=== PATIENT | female | born 1980 | race Caucasian/White ===

== ENCOUNTER 2017-08-31 19:09 | Emergency (ER) | payer OTHER ==
[2017-08-31 21:31] VITALS: BP 112/65
[2017-08-31] MEDS ORDERED: Nitrofurantoin Macrocrystals* 50 MG CAP PO ONE (21:45)
[2017-08-31] MEDS ORDERED: Phenazopyridine TAB* 100 MG PO ONE ×2 (21:46→21:47)
--- NOTE | 2017-08-31 21:51 | UC ---
Complaint Female HPI - HPI Summary HPI Summary: 37 female presents to with complaints of urinary burning, frequency, urgency , and feeling as though she has to urinate even after just doing so. Symptoms just began this morning. Denies incontinence, vaginal discharge, itching or bleeding. NO abdominal pain, mild lower suprapubic discomfort. No back pain. No nausea, vomiting or fever. No noticeable blood in urine. No other complaints. No PMHx. Has not taken any medication. - History Of Current Complaint Chief Complaint: UCGU Stated Complaint: URINARY Time Seen by Provider: 08/31/17 21:40 Hx Obtained From: Patient Hx Last Menstrual Period: 08/12/17 ?: No Onset/Duration: Sudden Onset, Lasting Hours, Still Present, Worse Since Timing: Constant Severity Initially: Mild Severity Currently: Moderate Pain Intensity: 4 Pain Scale Used: 0-10 Numeric Character: Burning Aggravating Factor(s): Urination Alleviating Factor(s): Nothing Associated Signs And Symptoms: Positive: Negative - Allergies/Home Medications Allergies/Adverse Reactions: Allergies Allergy/AdvReac Type Severity Reaction Status Date / Time Penicillins Allergy Intermediate HIVES,SWELL Verified 08/31/17 21:31 ING Sulfa Drugs Allergy Intermediate Hives Verified 08/31/17 21:31 viruses Allergy Severe Hives Uncoded 08/31/17 21:31 Home Medications: Home Medications Albuterol HFA INHALER* [Ventolin HFA Inhaler*] 2 puff INH Q4H PRN 08/31/17 [ History Confirmed 08/31/17] PMH/Surg Hx/FS Hx/Imm Hx - Additional Past Medical History Additional PMH: Denied PMHx no DM HTN or asthma - Surgical History Surgical History: Yes Surgery Procedure, Year, and Place: - Family History Known Family History: Positive: Other - Postive [facility] for URI - Social History Alcohol Use: None Substance Use Type: None Smoking Status (MU): Never Smoked Tobacco Review of Systems Constitutional: Negative Respiratory: Negative Cardiovascular: Negative Gastrointestinal: Negative Genitourinary: Dysuria, Hematuria, Frequency, Urgency All Other Systems Reviewed And Are Negative: Yes Physical Exam Triage Information Reviewed: Yes Appearance: Well-Appearing, No Pain Distress, Well-Nourished Vital Signs: Initial Vital Signs Temp 97.8 F 08/31/17 21:26 Pulse 67 08/31/17 21:26 Resp 15 08/31/17 21:26 BP 112/65 08/31/17 21:26 Pulse Ox 100 08/31/17 21:26 Eyes: Positive: Conjunctiva Clear Respiratory: Positive: Chest non-tender, Lungs clear, Normal breath sounds, No respiratory distress, No accessory muscle use Cardiovascular: Positive: RRR, No Murmur, Pulses Normal, Brisk Capillary Refill Abdomen Description: Positive: Nontender, No Organomegaly, Soft, Other: - mild discomfort on palpation of suprapubic /bladder area. Negative: CVA Tenderness ( R), CVA Tenderness (L), Distended, Guarding Bowel Sounds: Positive: Present Musculoskeletal: Positive: Strength Intact Neurological: Positive: Alert Skin Exam: Normal Complaint Female Dx - Course Course Of Treatment: urinalysis obtained and showed leuk, nitrate and blood. due to results and symptoms of UTI will treat with macrobid. no concerns for pyelo or other etiology at this time. denies vaginal symptoms. pyridium also prescribed. given first doses while in UC. increase fluid intake, good hygeine and cranberry juice. aware of worsening signs and symptoms. normal vitals. follow up with pcp. culture results and susceptibility testing pending. - Differential Dx/Diagnosis Differential Diagnosis/HQI/PQRI: Urinary Tract Infection Provider Diagnoses: UTI Discharge - Discharge Plan Condition: Stable Disposition: HOME Prescriptions: Nitrofurantoin Monohyd Macro [Macrobid] 100 mg PO BID #13 cap Phenazopyridine 200 mg (NF) [Pyridium 200 MG tab *] 200 mg PO TID #4 tab Patient Education Materials: Phenazopyridine (By mouth), Nitrofurantoin Combination (By mouth), Urinary Tract Infection in Women (ED) Referrals: [facility] [place] [facility] [Outside] Additional Instructions: Take prescribed medication as directed. Increase fluid intake and recommend cranberry. Ibuprofen/tylenol for any discomfort. Any new or worsening symptoms please seek medical attention promptly (fever, abdominal or back pain, feeling ill, nausea, vomiting). Follow up PCP. Your urine will be cultured and if any medication needs to be changed once results are obtained you will be informed in ~ 2-3 days.
== END 2017-08-31 22:05 | disposition home or self-care (01) ==
LOC: UCCORT 19:09
DX: N39.0 Urinary tract infection, site not specified (principal); B96.20 Unspecified Escherichia coli [E. coli] as the cause of diseases classified elsewhere; R31.9 Hematuria, unspecified; Z88.0 Allergy status to penicillin; Z88.2 Allergy status to sulfonamides
CPT/HCPCS: 81003; 87077; 87086; 87186; 99212; A9270-GY; G0463